=== PATIENT | female | born 1945 | race Caucasian/White ===

== ENCOUNTER 2020-11-22 14:21 | Emergency (ER) | payer MEDICARE ==
[~2020-11-22 14:21] MED LIST: ABILIFY5 MG PO; BUSPIRONE HCL15 MG PO; FLAGYL500 MG PO; FLEXERIL 10 MG10 MG PO; LEVAQUIN750 MG PO; MOBIC15 MG PO; NORCO 5-325 TA1 EACH PO; NORVASC5 MG PO; PAXIL20 MG PO; PRILOSEC40 MG PO; TENORMIN100 MG PO; ZESTRIL20 MG PO; ZOCOR40 MG PO
[2020-11-22 15:13] LABS: RED BLOOD COUNT 4.1 M/UL (4.00-5.10); WHITE BLOOD COUNT 6.7 K/UL (4.5-11.0)
[2020-11-22] MEDS ORDERED: IBUPROFEN600 MG PO (16:20)
[2020-11-22] MEDS ORDERED: CYCLOBENZAPRINE10 MG PO (16:20)
== END 2020-11-22 17:11 | disposition home or self-care (01) ==
LOC: ER1 14:21
PROVIDERS: Internal Medicine
DX: R25.2 Cramp and spasm (principal); I10 Essential (primary) hypertension; F32.9 Major depressive disorder, single episode, unspecified; Z85.038 Personal history of other malignant neoplasm of large intestine; Z90.49 Acquired absence of other specified parts of digestive tract; Z88.0 Allergy status to penicillin; Z88.6 Allergy status to analgesic agent
CPT/HCPCS: 36415; 80053; 82550; 82553; 84484; 85025; 93970; 96374; 96375; 99284; J2270; J2405

== ENCOUNTER 2020-12-18 20:53 | Emergency (ER) | payer MEDICARE ==
[~2020-12-18 20:53] MED LIST changes: +CYCLOBENZAPRINE10 MG PO; +IBUPROFEN600 MG PO
== END 2020-12-18 21:30 | disposition home or self-care (01) ==
LOC: ER1 20:53
DX: M79.18 Myalgia, other site (principal); I10 Essential (primary) hypertension; Z88.0 Allergy status to penicillin; Z88.6 Allergy status to analgesic agent; R22.1 Localized swelling, mass and lump, neck
CPT/HCPCS: 99283